=== PATIENT | male | born 1960 | race Caucasian/White ===

== ENCOUNTER 2017-03-15 13:47 | Outpatient (CLI) | payer BC ==
[~2017-03-15 13:47] MED LIST: LEVO50TA77 PO; WARF6TAB20 PO
== END 2017-03-15 17:45 | disposition home or self-care (01) ==
LOC: SCT 13:47
PROVIDERS: ATTEND Internal Medicine
DX: J32.8 Other chronic sinusitis (principal)
CPT/HCPCS: 70486-TC

== ENCOUNTER 2019-04-11 12:58 | Outpatient (CLI) | payer BC ==
[~2019-04-11 12:58] MED LIST changes: -LEVO50TA77 PO; +SYN50 PO
== END 2019-04-11 21:12 | disposition home or self-care (01) ==
LOC: SRD 12:58
PROVIDERS: ATTEND Internal Medicine
DX: M47.812 Spondylosis without myelopathy or radiculopathy, cervical region (principal); M47.814 Spondylosis without myelopathy or radiculopathy, thoracic region
CPT/HCPCS: 72050-TC; 72072-TC